=== PATIENT | female | born 1955 | race American Indian/Alaskan Native ===

== ENCOUNTER 2018-06-14 11:33 | Emergency (ER) | payer OTHER ==
[2018-06-14] MEDS ORDERED: NITRO-BID 2% TP ONE (12:05)
--- NOTE | 2018-06-14 12:19 | Emergency Department Report ---
ED Chest Pain HPI - General Chief Complaint: Chest Pain Stated Complaint: CHEST PAIN Time Seen by Provider: 06/14/18 12:03 Source: patient, EMS Mode of arrival: Stretcher Limitations: No Limitations - History of Present Illness Initial Comments: 62-year-old female with past medical history hypertension presents to the hospital complaining of chest pain and started 45 minutes prior to arrival. Pain is across the chest, burning and stabbing in nature associated with shortness of breath. EMS reports a BP of 220/128 at the scene. Patient provided nitroglycerin and aspirin by EMS with reduction in pain. Patient developed headache after nitroglycerin which has now resolved. Please of the noncompliant with her BP meds for 6 months and using essential oils however, she has not been checking her blood pressure to see if the essential oils are effe ctive and she has not followed up with a primary care doctor. Last stress test was in 2005 or 2006. No previous history of cardiac. She does not smoke cigarettes. Her mother has a history of CAD, her younger brother had a CABG at age 51 and her other younger brother has an AICD. PMD: NONE Severity scale (0 -10): 6 - Related Data Home Medications Medication Instructions Recorded Confirmed Last Taken Lisinopril/Hydrochlorothiazide 1 tab PO DAILY 06/14/18 06/14/18 Unknown [Zestoretic 20-25 mg] Allergies Allergy/AdvReac Type Severity Reaction Status Date / Time No Known Allergies Allergy Unverified 06/14/18 12:17 Heart Score - HEART Score History: Moderately suspicious EKG: Non-specific Age: 45-65 Risk factors: 1-2 risk factors Troponin: < normal limit HEART Score: 4 ED Review of Systems ROS: Stated complaint: CHEST PAIN Other details as noted in HPI Comment: All other systems reviewed and negative ED Past Medical Hx - Past Medical History Previous Medical History?: Yes Hx Hypertension: Yes (Not taking medication using essential oils for 6 months) - Social History Smoking Status: Never Smoker Substance Use Type: None, Alcohol - Medications Home Medications: Home Medications Medication Instructions Recorded Confirmed Last Taken Type Lisinopril/Hydrochlorothiazide 1 tab PO DAILY 06/14/18 06/14/18 Unknown History [Zestoretic 20-25 mg] ED Physical Exam - General Limitations: No Limitations - Other Other exam information: General: No limitations, patient is alert in no acute distress Head exam: Atraumatic, normocephalic Eyes exam: Normal appearance ENT: Moist mucous membrane, normal oropharynx Neck exam: Normal inspection, full range of motion, no meningismus nontender Respiratory exam: Clear to auscultation bilateral, no wheezes, rales, crackles Cardiovascular: Normal rate and rhythm, normal heart sounds Abdomen: Soft, nondistended, and nontender, with normal bowel sounds, no juan r ound, or guarding Extremity: Full range of motion normal inspection no deformity, no calf tenderness or edema Back: Normal Inspection, full range of motion, no tenderness Neurologic: Alert, oriented x3, cranial nerves intact, no motor or sensory deficit Psychiatric: normal affect, normal mood Skin: Warm, dry, intact ED Course Vital Signs 06/14/18 06/14/18 06/14/18 11:46 12:18 12:27 Temperature 98.5 F Pulse Rate 74 80 Respiratory 16 Rate Blood Pressure 203/94 168/86 Blood Pressure 168/86 [Right] O2 Sat by Pulse 94 Oximetry 06/14/18 14:30 Temperature Pulse Rate 70 Respiratory 16 Rate Blood Pressure Blood Pressure 175/87 [Right] O2 Sat by Pulse 100 Oximetry EDUARD score - Eduard Score Age > 65: (0) No Aspirin use within the Past 7 Days: (0) No 3 or more CAD Risk Factors: (1) Yes 2 or more Angina events in past 24 hrs: (0) No Known CAD with more than 50% Stenosis: (0) No Elevated Cardiac Markers: (0) No ST Deviation Greater than 0.5mm: (0) No EDUARD Score: 1 ED Medical Decision Making - Lab Data Result diagrams: 06/14/18 13:14 06/14/18 13:14 Lab Results 06/14/18 06/14/18 06/14/18 Range/Units 13:14 13:14 13:14 WBC 7.2 (4.5-11.0) K/mm3 RBC 4.88 (3.65-5.03) M/mm3 Hgb 14.6 H (10.1-14.3) gm/dl Hct 43.8 H (30.3-42.9) % MCV 90 (79-97) fl MCH 30 (28-32) pg MCHC 34 (30-34) % RDW 13.2 (13.2-15.2) % Plt Count 179 (140-440) K/mm3 Baso % (Auto) Professional Advisor Add Manual Diff Complete Total Counted 100 Seg Neuts % (Manual) 56.0 (40.0-70.0) % Band Neutrophils % 0 % Lymphocytes % (Manual) 41.0 H (13.4-35.0) % Reactive Lymphs % (Man) 0 % Monocytes % (Manual) 3.0 (0.0-7.3) % Eosinophils % (Manual) 0 (0.0-4.3) % Basophils % (Manual) 0 (0.0-1.8) % Metamyelocytes % 0 % Myelocytes % 0 % Promyelocytes % 0 % Blast Cells % 0 % Nucleated RBC % Not Reportable Seg Neutrophils # Man 4.0 (1.8-7.7) K/mm3 Band Neutrophils # 0.0 K/mm3 Lymphocytes # (Manual) 3.0 (1.2-5.4) K/mm3 Abs React Lymphs (Man) 0.0 K/mm3 Monocytes # (Manual) 0.2 (0.0-0.8) K/mm3 Eosinophils # (Manual) 0.0 (0.0-0.4) K/mm3 Basophils # (Manual) 0.0 (0.0-0.1) K/mm3 Metamyelocytes # 0.0 K/mm3 Myelocytes # 0.0 K/mm3 Promyelocytes # 0.0 K/mm3 Blast Cells # 0.0 K/mm3 WBC Morphology Not Reportable Hypersegmented Neuts Not Reportable Hyposegmented Neuts Not Reportable Hypogranular Neuts Not Reportable Smudge Cells Not Reportable Toxic Granulation Not Reportable Toxic Vacuolation Not Reportable Dohle Bodies Not Reportable Pelger-Huet Anomaly Not Reportable Jose Rods Not Reportable Platelet Estimate Cons Clumped Platelets Not Reportable Plt Clumps, EDTA Not Reportable Large Platelets Not Reportable Giant Platelets Few Platelet Satelliting Not Reportable Plt Morphology Comment Not Reportable RBC Morphology Not Reportable Dimorphic RBCs Not Reportable Polychromasia Not Reportable Hypochromasia Not Reportable Poikilocytosis 2+ Anisocytosis 1+ Microcytosis Not Reportable Macrocytosis Not Reportable Spherocytes Not Reportable Pappenheimer Bodies Not Reportable Sickle Cells Not Reportable Target Cells 2+ Tear Drop Cells Not Reportable Ovalocytes Not Reportable Helmet Cells Not Reportable [place] Bodies Not Reportable [place] Rings Not Reportable [place] Cells Not Reportable Bite Cells Not Reportable Crenated Cell Not Reportable Elliptocytes Not Reportable Acanthocytes (Spur) Not Reportable Rouleaux Not Reportable Hemoglobin C Crystals Not Reportable Schistocytes Not Reportable Malaria parasites Not Reportable Thong Bodies Not Reportable Hem Pathologist Commnt No PT 12.3 (12.2-14.9) Sec. INR 0.87 (0.87-1.13) APTT 26.5 (24.2-36.6) Sec. Sodium 140 (137-145) mmol/L Potassium 4.2 (3.6-5.0) mmol/L Chloride 102.4 (98-107) mmol/L Carbon Dioxide 26 (22-30) mmol/L Anion Gap 16 mmol/L BUN 13 (7-17) mg/dL Creatinine 0.7 (0.7-1.2) mg/dL Estimated GFR > 60 ml/min BUN/Creatinine Ratio 19 % Glucose 95 (65-100) mg/dL Calcium 8.6 (8.4-10.2) mg/dL Total Bilirubin 0.80 (0.1-1.2) mg/dL AST 24 (5-40) units/L ALT 23 (7-56) units/L Alkaline Phosphatase 46 (35-129) units/L Troponin T < 0.010 (0.00-0.029) ng/mL Total Protein 7.9 (6.3-8.2) g/dL Albumin 4.3 (3.9-5) g/dL Albumin/Globulin Ratio 1.2 % - EKG Data -: EKG Interpreted by [facility] EKG shows normal: sinus rhythm, axis (qrs 31), QRS complexes (qrsd 83), ST-T w aves (no stemi, lat t inv, ivelisse) Rate: normal - EKG Data When compared to previous EKG there are: previous EKG unavailable - Radiology Data Radiology results: report reviewed AP CHEST: HISTORY: chest pain No comparison. Mild cardiomegaly and mild central pulmonary venous congestion are identified. The lungs are generally clear. No evidence for pneumonia, large pleural effusion or pneumothorax. The bony structures are grossly intact. IMPRESSION: Mild cardiomegaly and pulmonary venous congestion. - Medical Decision Making no stemi pain controlled ntg paste in ed trop neg cp with risk factors and new onset chf hosp to admit. - Differential Diagnosis mi, unstable angina, pe, htn emergency, disection, chf Critical Care Time: No Critical care attestation.: If time is entered above; I have spent that time in minutes in the direct care of this critically ill patient, excluding procedure time. ED Disposition Clinical Impression: Chest pain, New onset of congestive heart failure, Uncontrolled hypertension, Noncompliance with medication regimen Disposition: OP ADMIT IP TO THIS HOSP Is pt being admited?: Yes Condition: Stable Time of Disposition: 14:31 (Dr Love/hosp)
[2018-06-14] MEDS ORDERED: MORPHINE IV PRN (12:22)
[2018-06-14] MEDS ORDERED: ZOFRAN IV ONE (12:22)
--- NOTE | 2018-06-14 12:27 | XRay Report ---
AP CHEST: HISTORY: chest pain No comparison. Mild cardiomegaly and mild central pulmonary venous congestion are identified. The lungs are generally clear. No evidence for pneumonia, large pleural effusion or pneumothorax. The bony structures are grossly intact. IMPRESSION: Mild cardiomegaly and pulmonary venous congestion.
[2018-06-14 13:41] LABS: Hematocrit 43.8 % (30.3-42.9); Hemoglobin 14.6 gm/dl (10.1-14.3); Mean Corpuscular HGB Conc 34 % (30-34); Mean Corpuscular Volume 90 fl (79-97); Red Blood Count 4.88 M/mm3 (3.65-5.03); Red Cell Distribution Width 13.2 % (13.2-15.2)
[2018-06-14 13:54] LABS: INR 0.87 (0.87-1.13)
[2018-06-14 13:55] LABS: Partial Thromboplastin Time 26.5 Sec. (24.2-36.6)
[2018-06-14 14:02] LABS: Alanine Aminotransferase 23 units/L (7-56); Albumin 4.3 g/dL (3.9-5); BUN/Creatinine Ratio 19; Blood Urea Nitrogen 13 mg/dL (7-17); Calcium 8.6 mg/dL (8.4-10.2); Hemolysis Index 34
[2018-06-14 14:17] LABS: Basophils % (Manual) 0 % (0.0-1.8); Eosinophils % (Manual) 0 % (0.0-4.3); Total Cells Counted 100
[2018-06-14 14:20] LABS: Anisocytosis 1+; Poikilocytosis 2+; Target Cells 2+
[2018-06-14 14:21] LABS: Giant Platelets Few; Platelet Count 179 K/mm3 (140-440); Platelet Estimate Cons
[2018-06-14] MEDS ORDERED: APRESOLINE IV ONE (17:26)
--- NOTE | 2018-06-14 17:29 | Event Note ---
Date: 06/14/18 62 YO Female with HTN, medication noncompliance presents to ED for evaluation. Pt seen and evaluated in ED and treated IAW Chest pain protocol. Serial cardiac enzymes, ekg, telemetry, D dimer, were found to be normal without evidence of ischemia. Pt medically optimized, and back to usual state of health. Pt discharged home and instructed to f/u pcp 1wk, and cardiology 1wk. Pt counseled regarding medication compliance. General: No limitations, patient is alert in no acute distress Head exam: Atraumatic, normocephalic Eyes exam: Normal appearance ENT: Moist mucous membrane, normal oropharynx Neck exam: Normal inspection, full range of motion, no meningismus nontender Respiratory exam: Clear to auscultation bilateral, no wheezes, rales, crackles Cardiovascular: Normal rate and rhythm, normal heart sounds Abdomen: Soft, nondistended, and nontender, with normal bowel sounds, no rebound, or guarding Extremity: Full range of motion normal inspection no deformity, no calf tenderness or edema Back: Normal Inspection, full range of motion, no tenderness Neurologic: Alert, oriented x3, cranial nerves intact, no motor or sensory def icit Psychiatric: normal affect, normal mood Skin: Warm, dry, intact
[2018-06-14] MEDS ORDERED: APRESOLINE PO ONE (18:00)
[2018-06-14] MEDS ORDERED: APRESOLINE ONE (18:04)
[2018-06-14 19:52] VITALS: BP 148/61
== END 2018-06-14 19:45 | disposition admitted as inpatient to this hospital (09) ==
LOC: EDSEX → ED 11:33
DX: I50.9 Heart failure, unspecified (principal); I10 Essential (primary) hypertension
CPT/HCPCS: 36415; 71045; 80053; 84484; 85007; 85025; 85379; 85610; 85730; 93005; 93010